=== PATIENT | male | born 1995 | race African-American/Black ===

== ENCOUNTER 2021-12-28 12:43 | Emergency (ER) | payer BC, MEDICAID ==
[~2021-12-28] VITALS: Ht 193 cm; Wt 81.6 kg
[2021-12-28 13:52] VITALS: BP 137/80
[2021-12-28] MEDS ORDERED: KETOROLAC TROMETH 60MG/2ML VIAL IM ONE (14:00)
[2021-12-28] MEDS ORDERED: IBUP800T27 PO (14:10)
== END 2021-12-28 14:35 | disposition home or self-care (01) ==
LOC: ER 12:43
DX: S83.91XA Sprain of unspecified site of right knee, initial encounter (principal); F12.10 Cannabis abuse, uncomplicated; W18.39XA Other fall on same level, initial encounter; Y93.51 Activity, roller skating (inline) and skateboarding; Y92.89 Other specified places as the place of occurrence of the external cause; Y99.8 Other external cause status
CPT/HCPCS: 29505; 73562; 96372; 99283; J1885